=== PATIENT | female | born 1970 | race Hispanic/Latino ===

== ENCOUNTER 2017-10-25 15:33 | Outpatient (CLI) | payer BC | END 2017-10-25 15:34 | disposition home or self-care (01) | LOC: BICMAMMO 15:33 | PROVIDERS: ATTEND Family Medicine | DX: Z12.31 Encounter for screening mammogram for malignant neoplasm of breast (principal) | CPT/HCPCS: 77063; 77067 ==

== ENCOUNTER 2021-01-31 07:36 | Outpatient (CLI) | payer OTHER | END 2021-01-31 07:37 | disposition home or self-care (01) | LOC: SCSMRI 07:36 | PROVIDERS: ATTEND Family Medicine | DX: M47.26 Other spondylosis with radiculopathy, lumbar region (principal) | CPT/HCPCS: 72148 ==

== ENCOUNTER 2021-02-24 10:24 | Outpatient (CLI) | payer OTHER | END 2021-02-24 10:25 | disposition home or self-care (01) | LOC: BICRAD 10:24 | PROVIDERS: ATTEND Family Medicine | DX: M47.816 Spondylosis without myelopathy or radiculopathy, lumbar region (principal) | CPT/HCPCS: 72110 ==

== ENCOUNTER 2021-02-27 10:43 | Outpatient (CLI) | payer OTHER | END 2021-02-27 10:44 | disposition home or self-care (01) | LOC: BICMAMMO 10:43 | PROVIDERS: ATTEND Family Medicine | DX: Z12.31 Encounter for screening mammogram for malignant neoplasm of breast (principal); N64.89 Other specified disorders of breast | CPT/HCPCS: 77063; 77067 ==

== ENCOUNTER 2024-01-15 06:09 | Day surgery (SDC) | payer OTHER ==
[2024-01-03 09:57] VITALS: BMI 39.6
[2024-01-15] MEDS ORDERED: LevoFLOXacin D5W 500 mg (100 mL) BAG ONE (06:29)
[2024-01-15] MEDS ORDERED: Iopamidol 30 ML ONE (08:27)
[2024-01-15] MEDS ORDERED: Famotidine/PF 20 mg/2ml Vial ONE (08:34)
[2024-01-15] MEDS ORDERED: PROPOFOL 20 ML ONE (08:38)
[2024-01-15] MEDS ORDERED: Lidocaine 2% PF 5 ML VIAL ONE (08:38)
[2024-01-15] MEDS ORDERED: fentaNYL 50 mcg/mL 1 mL Vial ONE ×2 (08:38→10:44)
[2024-01-15] MEDS ORDERED: Rocuronium Bromide 10 MG/ML (10ML VIAL) ONE (08:39)
[2024-01-15] MEDS ORDERED: Dexamethasone 4 mg/ml Vial ONE (09:01)
[2024-01-15] MEDS ORDERED: Ondansetron PF 4 MG/2 ML Vial ONE (09:01)
[2024-01-15] MEDS ORDERED: SUGAMMADEX SODIUM 200 MG/2 ML VIAL ONE (09:02)
[2024-01-15] MEDS ORDERED: PHENYLEPHRINE-NS 100 MCG/ML 10 ML SYRINGE ONE (09:05)
[2024-01-15] MEDS ORDERED: Phenazopyridine HCl 100 MG TAB ONE (10:37)
[2024-01-15] MEDS ORDERED: Oxybutynin 5 MG TAB ONE (10:37)
== END 2024-01-15 13:15 | disposition home or self-care (01) ==
LOC: EDBD → SDC 06:09
PROVIDERS: ATTEND Urology
PROC: 0TC08ZZ Extirpation of Matter from Right Kidney, Via Natural or Artificial Opening Endoscopic (ICD-10-PCS; principal; 2024-01-15)
PROC: 0T768DZ Dilation of Right Ureter with Intraluminal Device, Via Natural or Artificial Opening Endoscopic (ICD-10-PCS; principal; 2024-01-15)
PROC: 0TC68ZZ Extirpation of Matter from Right Ureter, Via Natural or Artificial Opening Endoscopic (ICD-10-PCS; principal; 2024-01-15)
DX: N20.2 Calculus of kidney with calculus of ureter (principal); I10 Essential (primary) hypertension; E78.5 Hyperlipidemia, unspecified; E66.9 Obesity, unspecified; Z68.39 Body mass index [BMI] 39.0-39.9, adult; Z90.89 Acquired absence of other organs; Z90.49 Acquired absence of other specified parts of digestive tract; Z79.899 Other long term (current) drug therapy; Z86.16 Personal history of COVID-19
CPT/HCPCS: 74018; 74420; 82365; 88300; C1747; C1769; C2617; J1100; J1956; J2001; J2405; J2704; J3010; Q9967; S0028

== ENCOUNTER 2024-05-12 09:31 | Outpatient (CLI) | payer OTHER | END 2024-05-12 09:32 | disposition home or self-care (01) | LOC: BICRAD 09:31 | PROVIDERS: ATTEND Physician Assistant | DX: M25.561 Pain in right knee (principal); M17.0 Bilateral primary osteoarthritis of knee ==

== ENCOUNTER 2024-05-27 13:03 | Outpatient (CLI) | payer OTHER | END 2024-05-27 13:04 | disposition home or self-care (01) | LOC: BICULT 13:03 | PROVIDERS: ATTEND Urology | DX: N20.2 Calculus of kidney with calculus of ureter (principal); N28.1 Cyst of kidney, acquired; R35.0 Frequency of micturition; Z98.890 Other specified postprocedural states | CPT/HCPCS: 76770 ==

== ENCOUNTER 2025-05-28 11:09 | Outpatient (CLI) | payer OTHER | END 2025-05-28 11:10 | disposition home or self-care (01) | LOC: BICMAMMO 11:09 | PROVIDERS: ATTEND Physician Assistant | DX: Z12.31 Encounter for screening mammogram for malignant neoplasm of breast (principal) | CPT/HCPCS: 77063; 77067 ==